=== PATIENT | female | born 2005 | race Caucasian/White ===

== ENCOUNTER 2024-09-27 08:00 | Oncology outpatient (recurring) (ONCR) | payer OTHER, SELFPAY ==
[2024-09-18 08:12] VITALS: BP 128/82; PULSE 74; RESP 16; TEMP 37.1; O2SAT 99
[2024-09-18] MEDS: iron sucrose 200 MG in sodium chloride 0.9% (100 ml) 100 ML 220 MG IV (08:23)
[2024-09-18 09:01] VITALS: BP 111/76; PULSE 67; TEMP 37.1; O2SAT 99
[2024-09-20 07:57] VITALS: BP 118/76; PULSE 95; RESP 16; TEMP 36.3; O2SAT 99
[2024-09-20] MEDS: iron sucrose 200 MG in sodium chloride 0.9% (100 ml) 100 ML 220 MG IV (08:10)
[2024-09-20 08:45] VITALS: BP 113/74; PULSE 75; RESP 16; TEMP 36.8; O2SAT 100
[2024-09-22 08:10] VITALS: BP 111/67; PULSE 71; RESP 16; TEMP 36.7; O2SAT 97
[2024-09-22] MEDS: iron sucrose 200 MG in sodium chloride 0.9% (100 ml) 100 ML 220 MG IV (08:12)
[2024-09-22 08:40] VITALS: BP 118/82; PULSE 81; RESP 16; TEMP 36.4; O2SAT 100
[2024-09-25 08:05] VITALS: BP 120/76; PULSE 96; RESP 16; TEMP 36.8; O2SAT 99
[2024-09-25] MEDS: iron sucrose 200 MG in sodium chloride 0.9% (100 ml) 100 ML 220 MG IV (08:17)
[2024-09-25 08:47] VITALS: BP 110/73; PULSE 76; RESP 16; TEMP 36.9; O2SAT 99
[2024-09-27 08:28] VITALS: BP 112/76; PULSE 98; RESP 16; TEMP 36.8; O2SAT 98
[2024-09-27] MEDS: iron sucrose 200 MG in sodium chloride 0.9% (100 ml) 100 ML 220 MG IV (08:34)
[2024-09-27 09:15] VITALS: BP 120/84; PULSE 68; RESP 16; TEMP 36.8; O2SAT 99
== END 2024-09-28 23:59 | disposition home or self-care (01) ==
PROVIDERS: Family Provider Family Medicine; PCP Family Medicine; Visit Provider Family Medicine
DX: D50.8 Other iron deficiency anemias (principal); Z79.899 Other long term (current) drug therapy; Z53.9 Procedure and treatment not carried out, unspecified reason
CPT/HCPCS: 96365; J1756